=== PATIENT | female | born 1935 | race Two or more races ===

== ENCOUNTER 2019-01-25 09:16 | Outpatient (CLI) | payer MEDICARE, OTHER | END 2019-01-25 23:59 | disposition home or self-care (01) | LOC: RAD 09:16 | PROVIDERS: ATTEND Internal Medicine Interventional Cardiology | DX: I70.0 Atherosclerosis of aorta (principal); I51.7 Cardiomegaly | CPT/HCPCS: 71046 ==

== ENCOUNTER 2019-03-08 09:31 | Outpatient (CLI) | payer MEDICARE, OTHER ==
[2019-03-09] MEDS ORDERED: [UNRECOGNIZED DRUG - CODE] MC (15:58)
[2019-03-09] MEDS ORDERED: AMLO10TA7 PO (15:58)
[2019-03-09] MEDS ORDERED: LOSA100T31 PO (15:58)
[2019-03-09] MEDS ORDERED: METO50TA16 PO (15:58)
[2019-03-09] MEDS ORDERED: IBUP-23 PO (15:58)
[2019-03-09] MEDS ORDERED: HYDR-4209 PO (15:58)
[2019-03-09] MEDS ORDERED: CLON0.2T PO (15:58)
[2019-03-09] MEDS ORDERED: ALPR0.5T8 PO (15:58)
== END 2019-03-08 23:59 | disposition home or self-care (01) ==
LOC: CARD 09:31
PROVIDERS: ATTEND Internal Medicine Interventional Cardiology
DX: I82.409 Acute embolism and thrombosis of unspecified deep veins of unspecified lower extremity (principal); M25.862 Other specified joint disorders, left knee
CPT/HCPCS: 93970-TC

== ENCOUNTER 2019-03-09 13:37 | Inpatient (IN) | payer MEDICARE, OTHER ==
[~2019-03-09] VITALS: Ht 134.6 cm; Wt 69.9 kg
[2019-03-09] MEDS: LOSARTAN POTASSIUM 50 MG TABLET PO SCH (09:00)
--- NOTE | 2019-03-09 15:03 | NUR ---
CALLED NURSING SUP FOR TELE BED
[2019-03-09 15:26] LABS: BASOPHILS # (AUTO) 0.1 /CMM (0.0-0.2); BASOPHILS % (AUTO) 0.8 % (0.0-2.0); EOSINOPHILS % (AUTO) 0.7 % (0.0-6.0); HEMATOCRIT 38 % (33-45); LYMPHOCYTES # (AUTO) 3.3 /CMM (0.8-4.8); LYMPHOCYTES % (AUTO) 29.4 % (20.0-44.0); MEAN CORPUSCULAR HGB CONC 32 g/dl (31.0-36.0); MEAN CORPUSCULAR VOLUME 89 fL (82-100); MONOCYTES # (AUTO) 0.5 /CMM (0.1-1.30); MONOCYTES % (AUTO) 4.5 % (2.0-12.0); NEUTROPHILS # (AUTO) 7.2 /CMM (1.8-8.9); NEUTROPHILS % (AUTO) 64.6 % (43.0-81.0); PLATELET COUNT (AUTO) 262 /CMM (150-450); RED BLOOD CELL COUNT(AUTO) 4.25 MIL/uL (4.0-5.2); WHITE BLOOD COUNT (AUTO) 11.2 K/uL (4.3-11.0)
[2019-03-09] MEDS ORDERED: FUROSEMIDE 40 MG/4 ML VIAL IV ONE (15:30)
[2019-03-09] MEDS ORDERED: ACETAMINOPHEN ES 500 MG TABLET PO ONE (15:30)
--- NOTE | 2019-03-09 15:30 | NUR ---
ASSUMED CARE. BIB DAUGHTER FROM CLINIC, DIZZINESS AND PALPITATION SINCE 1130. PT AAOX4, VSS. RR EVEN & UNLABORED. DENIES CP, SOB, N/V/D, WEAKNESS @ THIS TIME. SPEAKING FLUENTLY W/ HER [place] TONGUE (FAMILY @ BS ASSISTING W/ TRANSLATION), NO FACIAL DROOP, NO ARM DRIFTING, NO VISION PROBLEMS @ THIS TIME. WILL CONT TO MONITOR.
[2019-03-09 15:34] LABS: CALCIUM, SERUM 8.4 mg/dL (8.5-10.1); CARBON DIOXIDE 32 mmol/L (21-32); CHLORIDE 99 mmol/L (98-107); GLUCOSE 111 mg/dL (74-106); POTASSIUM 3.4 mmol/L (3.5-5.1); SODIUM SERUM 139 mmol/L (136-145); UREA NITROGEN, BLOOD 27 mg/dL (7-18)
[2019-03-09] MEDS ORDERED: FUROSEMIDE 40 MG/4 ML VIAL ONE (15:35)
[2019-03-09] MEDS ORDERED: ACETAMINOPHEN ES 500 MG TABLET ONE (15:35)
--- NOTE | 2019-03-09 15:41 | NUR ---
PT TO CT VIA [facility].
[2019-03-09 15:51] LABS: ALANINE AMINOTRANSFERASE 43 U/L (12-78); ALBUMIN 3.5 g/dL (3.4-5.0); ALKALINE PHOSPHATASE 79 U/L (46-116); ASPARTATE AMINOTRANSFERASE 37 U/L (15-37); B-TYPE NATRIURETIC PEPTIDE 1846 PG/ML (0-125); BILIRUBIN,DIRECT 0.1 mg/dL (0.0-0.2); BILIRUBIN,TOTAL 0.5 mg/dL (0.2-1.0); TOTAL PROTEIN, SERUM 7.1 g/dL (6.4-8.2)
[2019-03-09] MEDS ORDERED: [UNRECOGNIZED DRUG - CODE] MC (15:58)
[2019-03-09] MEDS ORDERED: HYDR-4209 PO (15:58)
[2019-03-09] MEDS ORDERED: AMLO10TA7 PO (15:58)
[2019-03-09] MEDS ORDERED: ALPR0.5T8 PO (15:58)
[2019-03-09] MEDS ORDERED: IBUP-23 PO (15:58)
[2019-03-09] MEDS ORDERED: LOSA100T31 PO (15:58)
[2019-03-09] MEDS ORDERED: METO50TA16 PO (15:58)
[2019-03-09] MEDS ORDERED: CLON0.2T PO (15:58)
[2019-03-09] MEDS ORDERED: ASPIRIN EC 325 MG TABLET.DR PO ONE ×2 (16:30→16:31)
--- NOTE | 2019-03-09 17:16 | NUR ---
REPORT GIVEN TO VAMSI SEN FOR NICO.
[2019-03-09 18:53] VITALS: BP 148/75
[2019-03-09] MEDS ORDERED: ONDANSETRON HCL/PF 4 MG/2 ML VIAL IVP PRN (19:00)
[2019-03-09] MEDS ORDERED: ACETAMINOPHEN 325 MG TABLET PO PRN (19:00)
[2019-03-09] MEDS ORDERED: MAGNESIUM HYDROXIDE 30 ML UDC PO PRN (19:00)
[2019-03-09] MEDS ORDERED: Z GUARD REMEDY 2 OZ OINT TP PRN (19:00)
[2019-03-09] MEDS ORDERED: MAG HYDROX/AL HYDROX/SIMETH 30 ML UDC PO PRN (19:00)
[2019-03-09] MEDS ORDERED: HYDROCODONE/APAP 5/325MG 1 EACH TABLET PO PRN (19:00)
--- NOTE | 2019-03-09 19:00 | NUR ---
RN MIKE OPENING NOTES PATIENT IN BED, AWAKE, A/OX4, AZERI SPEAKING. FAMILY AT BEDSIDE AND ABLE TO HELP TRANSLATE FOR PATIENT. ON TELE MONITOR SR WITH HR 80S. ON ROOM AIR, RR EVEN AND UNLABORED. PATIENT DENIES ANY SOB OR PAIN AT PRESENT MOMENT. PATIENT IS ABLE TO AMBULATE WITH CANE AND MINIMAL ASSISTANCE. IV SITE RIGHT AC 20G, FLUSHING AND PATENT, SITE C/D/I, S/L. SAFETY MEASURES IN PLACE; BED IS LOCKED AND IN LOWEST POSITION, SIDE RAILS UP X2, CALL LIGHT WITHIN REACH. WILL CONT TO MONITOR PT CLOSELY.
--- NOTE | 2019-03-09 19:23 | NUR ---
RN MIKE CLOSING NOTES PT IS A&OX4 MONGOLIAN SPEAKING ONLY FAMILY IS BEDSIDE. PT IS ON TELE MONITOR HR 96 SR. PT DENIES ANY SOB OR CP AT PRESENT MOMENT PT IS ABLE TO AMBULATE WITH CANE. PT HAS A 20 GAUGE RAC SL. BED IS LOCKED AND IN LOWEST POSITION WITH CALL LIGHT IN REACH. WILL ENDORSE CONTINUITY OF CARE TO KENNEL AIDE RN.
[2019-03-09] MEDS: ENOXAPARIN SODIUM 80 MG/0.8 ML DISP.SYRIN SQ SCH (19:44)
[2019-03-09] MEDS: NITROGLYCERIN PACKET 1 GM PACKET TOP SCH ×2 (19:46→21:33)
[2019-03-09 20:00] VITALS: BP 152/63
[2019-03-09] MEDS: ALPRAZOLAM 0.5 MG TABLET PO SCH (21:00)
[2019-03-09] MEDS: CLONIDINE HCL 0.1 MG TABLET PO SCH (21:33)
[2019-03-10] VITALS: BP 113/62
[2019-03-10 04:00] VITALS: BP 144/64
[2019-03-10] MEDS: NITROGLYCERIN PACKET 1 GM PACKET TOP SCH ×3 (04:54→21:00)
[2019-03-10] MEDS: ALPRAZOLAM 0.5 MG TABLET PO SCH ×4 (04:54→21:30)
[2019-03-10 06:50] LABS: BASOPHILS # (AUTO) 0.1 /CMM (0.0-0.2); BASOPHILS % (AUTO) 0.7 % (0.0-2.0); EOSINOPHILS % (AUTO) 1.7 % (0.0-6.0); HEMATOCRIT 34 % (33-45); HEMOGLOBIN 10.9 g/dL (11.5-14.8); LYMPHOCYTES # (AUTO) 3.3 /CMM (0.8-4.8); LYMPHOCYTES % (AUTO) 39.2 % (20.0-44.0); MEAN CORPUSCULAR HGB CONC 32 g/dl (31.0-36.0); MEAN CORPUSCULAR VOLUME 88 fL (82-100); MONOCYTES # (AUTO) 0.4 /CMM (0.1-1.30); MONOCYTES % (AUTO) 5.3 % (2.0-12.0); NEUTROPHILS # (AUTO) 4.4 /CMM (1.8-8.9); NEUTROPHILS % (AUTO) 53.1 % (43.0-81.0); PLATELET COUNT (AUTO) 241 /CMM (150-450); RED BLOOD CELL COUNT(AUTO) 3.84 MIL/uL (4.0-5.2); WHITE BLOOD COUNT (AUTO) 8.3 K/uL (4.3-11.0)
--- NOTE | 2019-03-10 06:50 | NUR ---
MIKE RN CLOSING NOTES PATIENT IN BED, SLEEPING, BUT EASY TO AROUSE. A/OX4, BELGIAN SPEAKING. FAMILY AT BEDSIDE AND ABLE TO HELP TRANSLATE FOR PATIENT. NO ACUTE CHANGES THROUGHOUT SHIFT. ON TELE MONITOR SR WITH HR 70S WITH OCCASIONAL PACS. ON OXYGEN 1LPM VIA NC, TOLERATING WELL, RR EVEN AND UNLABORED. PATIENT DENIES ANY SOB OR PAIN AT THIS TIME. PATIENT IS ABLE TO AMBULATE WITH CANE AND MINIMAL ASSISTANCE. IV SITE RIGHT AC 20G, FLUSHING AND PATENT, SITE C/D/I, S/L. SAFETY MEASURES IN PLACE; BED IS LOCKED AND IN LOWEST POSITION, SIDE RAILS UP X2, CALL LIGHT WITHIN REACH. WILL CONT TO MONITOR PT CLOSELY. WILL ENDORSE TO AM RN FOR NICO.
[2019-03-10 07:08] LABS: CHOLESTEROL 191 mg/dL (<200); HDL CHOLESTEROL 52 mg/dL (40-60); LDL 125 mg/dL (0-99); TRIGLYCERIDES 104 mg/dL (30-150)
[2019-03-10 07:10] LABS: CALCIUM, SERUM 7.9 mg/dL (8.5-10.1); CARBON DIOXIDE 31 mmol/L (21-32); CHLORIDE 104 mmol/L (98-107); CREATININE 0.8 mg/dL (0.6-1.3); GLUCOSE 94 mg/dL (74-106); MAGNESIUM 2.3 mg/dL (1.8-2.4); POTASSIUM 2.9 mmol/L (3.5-5.1); SODIUM SERUM 142 mmol/L (136-145); UREA NITROGEN, BLOOD 25 mg/dL (7-18)
--- NOTE | 2019-03-10 07:35 | NUR ---
RN NOTE: RECEIVED PATIENT IN BED, AWAKE, ALERT AND VERBALLY RESPONSIVE. RESPIRATION EVEN AND UNLABORED SATURATING 96% WITH O2 @1L/MIN VIA NC. DENIED ANY PAIN/ CHEST PAIN. (R) AC 20G NOTED INTACT AND PATENT. AFEBRILE. SKIN WARM TO TOUCH. PATIENT ATE 100% OF HER BREAKFAST. ON ELECTROPHYSIOLOGY SCIENTIST SR HR= 73. BED ALARMED AND LOCKED AT ALL TIMES. CALL LIGHT WITHIN REACH. 2 FAMILY MEMBERS WERE PRESENT AT THE BEDSIDE.
[2019-03-10 08:00] VITALS: BP 125/68
[2019-03-10] MEDS ORDERED: AMLODIPINE BESYLATE 10 MG TABLET PO SCH (09:00)
[2019-03-10] MEDS: ASPIRIN 81 MG TAB.CHEW PO SCH (09:21)
[2019-03-10] MEDS: LOSARTAN POTASSIUM 50 MG TABLET PO SCH (09:22)
[2019-03-10] MEDS: METOPROLOL TARTRATE 50 MG TABLET PO SCH ×2 (09:22→16:46)
[2019-03-10] MEDS: ENOXAPARIN SODIUM 80 MG/0.8 ML DISP.SYRIN SQ SCH (09:23)
[2019-03-10] MEDS ORDERED: POTASSIUM CL. PREMIX PERIPHER. 50 ML IV SCH (09:30)
[2019-03-10] MEDS ORDERED: POTASSIUM CHLORIDE 20 MEQ TAB.PRT.SR PO ONE (09:30)
[2019-03-10] MEDS: DILTIAZEM HCL CD 240 MG PO SCH (10:24)
[2019-03-10] MEDS: POTASSIUM CHLORIDE 20 MEQ TAB.PRT.SR PO SCH ×4 (10:24→13:39)
--- NOTE | 2019-03-10 10:59 | NUR ---
RN NOTE: BEDSIDE REPORT WAS GIVEN TO MIKE POP RN FOR CONTINUITY OF CARE. PATIENT WAS PENDING FOR CTCA @1200 TODAY. PATIENT HAS A BIG FAMILY AND THEY WERE ALL PRESENT AT THE BEDSIDE. DENIED ANY CHEST PAIN OR ANY PAIN.
--- NOTE | 2019-03-10 11:00 | NUR ---
RN NOTE REPORT GIVEN AT BEDSIDE FROM MIKE PARISH RN. PATIENT IN BED AWAKE AND ALERTX4. SYRIAN SPEAKING. FAMILY AT BEDSIDE. ON 1L NC, NO COMPLAINS OF ANY PAIN NOR SOB AT THIS TIME. ON TELE MONITOR, SR AT 70s. HAS BLE +4 EDEMA. AMBULATORY WITH ASSIST AND USING CANE. ON CARDIAC DIET. HAS RIGHT AC #20 SALINE LOCKED. CTCA TO BE DONE AT 1200, CONSENT FORM SIGNED. K BEING REPLACED PER DR JOHNSON. WILL HAVE A REPEAT BMP AT 1600. BED LOCKED AND IN LOWEST POSITION. CALL LIGHT WITHIN REACH. WILL CONTINUE TO MONITOR
--- NOTE | 2019-03-10 11:45 | NUR ---
RN NOTE INSERTED ANOTHER IV SITE, LEFT AC #18 FOR CTCA TODAT AT 1200. INTACT, PATENT AND SALINE FLUSHED
[2019-03-10 12:00] VITALS: BP 100/49
[2019-03-10] MEDS ORDERED: IOHEXOL-350 100 ML VIAL IV ONE (12:11)
[2019-03-10] MEDS ORDERED: IV NS 0.9% 250 ML IV ONE (12:11)
[2019-03-10] MEDS ORDERED: CT SWABBABLE VALVE TRANS SET 1 EA INFUS.SET MC ONE (12:11)
--- NOTE | 2019-03-10 12:49 | NUR ---
RN NOTE PATIENT LEFT FOR CTCA. VSS. NO COMPLAINS OF ANY SOB NOR PAIN.
--- NOTE | 2019-03-10 13:40 | NUR ---
RN NOTE PATIENT CAME BACK FROM CTCA. VS 90/46, 98.0F, 59, 21, 96%. PATIENT REFUSED XANAX. AND TOOK HER LAST K PO REPLACEMENT. BMP RECHECK AT 1600 ORDERED
--- NOTE | 2019-03-10 15:08 | NUR ---
RN NOTE PATIENT COMPLAINED TO THE PHARMACIST THAT SHE FEELS LIKE SHE IS HAVING NAUSEA. PULLED OUT ZOFRAN FROM PYXIS. WHEN I ENTERED THE ROOM, PATIENT DOES NOT WANT ZOFRAN AND SHE STATED THAT SHE FEELS LIKE HER STOMACH IS GOING UPSIDE DOWN. WILL DISCARD ZOFRAN AND WILL GIVE MAALOX INSTEAD
[2019-03-10 16:00] VITALS: BP 101/49
[2019-03-10 16:18] LABS: CALCIUM, SERUM 8.1 mg/dL (8.5-10.1); CARBON DIOXIDE 29 mmol/L (21-32); CHLORIDE 101 mmol/L (98-107); CREATININE 1.1 mg/dL (0.6-1.3); GLUCOSE 134 mg/dL (74-106); POTASSIUM 4.6 mmol/L (3.5-5.1); SODIUM SERUM 136 mmol/L (136-145); UREA NITROGEN, BLOOD 28 mg/dL (7-18)
--- NOTE | 2019-03-10 16:46 | NUR ---
RN NOTE LOPRESSOR NOT GIVEN. BP ON THE LOW SIDE, 101/49. HR 63. PATIENT JUST HAD BM, DIARRHEA PER PATIENT DESCRIPTION. SENIOR INFORMATION SECURITY ENGINEER PUT A HAT ON THE TOILET SEAT JUST IN CASE SHE GOES AGAIN.
--- NOTE | 2019-03-10 17:30 | NUR ---
RN NOTE FAMILY AT BEDSIDE REPORTED PATIENT HAD 4X BOWEL MOVEMENT, DIARRHEA PER PATIENT'S DESCRIPTION. AFTER PUTTING THE HAT ON THE TOILET. 5TH BM, DIARRHEA, BROWN BUT NOT WATERY C-DIFF LIKE BM. PATIENT COMPLAINING OF ABDOMINAL PAIN 5/10. SHARP NON RADIATING PAIN. ADMINISTERED NORCO FOR PAIN. MADE DR JOHNSON AWARE, NO NEW ORDERS. RECHECK BMP TOMORROW AND GIVE PAIN MED FOR ABD PAIN FOR NOW
--- NOTE | 2019-03-10 17:34 | NUR ---
RN NOTE PHARMACY CALLED, THEY DECREASED LOVENOX TO 70 MG DAILY BECAUSE OF THE CREATININE LEVEL. NO LOVENOX FOR TONIGHT.
--- NOTE | 2019-03-10 18:43 | NUR ---
RN CLOSING NOTE PATIENT IN BED, AWAKE AND ALERT. FAMILY AT BEDSIDE. FEELING NAUSEOUS BUT REFUSING ZOFRAN FOR NOW. HAD X5 MD WILL AWARE. RIGHT AC #20 AND LEFT AC #18, SALINE LOCKED. NORCO GIVEN AT 1728 FOR ABD PAIN. K REPLACED. CTCA DONE, RESULTS SHOW NO OCCLUSION. BED IN LOWEST POSITION. CALL LIGHT WITHIN REACH. WILL ENDORSE TO NOC SHIFT FOR NICO
--- NOTE | 2019-03-10 19:14 | NUR ---
RN MIKE OPENING NOTES PATIENT IN BED, AWAKE, A/OX4, SWEDISH SPEAKING. FAMILY AT BEDSIDE AND ABLE TO HELP TRANSLATE FOR PATIENT. ON TELE MONITOR SR WITH HR 60S. ON ROOM AIR, RR EVEN AND UNLABORED. PATIENT DENIES ANY SOB OR PAIN AT THE MOMENT. PATIENT IS ABLE TO AMBULATE WITH CANE AND MINIMAL ASSISTANCE. IV SITE RIGHT AC 20G AND LEFT AC 18G, BOTH FLUSHING AND PATENT, SITES C/D/I, S/L. SAFETY MEASURES IN PLACE; BED IS LOCKED AND IN LOWEST POSITION, SIDE RAILS UP X2, CALL LIGHT WITHIN REACH. WILL CONT TO MONITOR PT CLOSELY.
[2019-03-10 20:00] VITALS: BP 110/45
--- NOTE | 2019-03-10 20:45 | NUR ---
MIKE RN NOTES PATIENT BP 110/45, HR 57. WILL HOLD NITROGLYCERIN TOPICAL FOR 2100 ORDER. WILL CONT TO MONITOR.
[2019-03-10] MEDS: CLONIDINE HCL 0.1 MG TABLET PO SCH (21:23)
[2019-03-11 01:00] VITALS: BP 116/55
[2019-03-11 04:00] VITALS: BP 129/65
[2019-03-11] MEDS: ALPRAZOLAM 0.5 MG TABLET PO SCH ×2 (05:02→12:24)
[2019-03-11] MEDS: NITROGLYCERIN PACKET 1 GM PACKET TOP SCH ×2 (05:03→12:25)
[2019-03-11 06:27] LABS: CALCIUM, SERUM 8.1 mg/dL (8.5-10.1); CARBON DIOXIDE 27 mmol/L (21-32); CHLORIDE 105 mmol/L (98-107); CREATININE 0.8 mg/dL (0.6-1.3); GLUCOSE 107 mg/dL (74-106); POTASSIUM 4.1 mmol/L (3.5-5.1); SODIUM SERUM 139 mmol/L (136-145); UREA NITROGEN, BLOOD 25 mg/dL (7-18)
--- NOTE | 2019-03-11 07:01 | NUR ---
RN MIKE CLOSING NOTES PATIENT IN BED, AWAKE, A/OX4, YI SPEAKING. FAMILY AT BEDSIDE AND ABLE TO HELP TRANSLATE FOR PATIENT. ON TELE MONITOR SR WITH HR 60S, LOWEST HR 57. NO EPISODES OF DIARRHEA THROUGHOUT SHIFT. PATIENT IS ABLE TO AMBULATE WITH CANE AND MINIMAL ASSISTANCE. IV SITE RIGHT AC 20G AND LEFT AC 18G, BOTH FLUSHING AND PATENT, SITES C/D/I, S/L. ALL MD ORDERS ATTENDED, ALL NEEDS ANTICIPATED AND MET. SAFETY MEASURES IN PLACE; BED IS LOCKED AND IN LOWEST POSITION, SIDE RAILS UP X2, CALL LIGHT WITHIN REACH. FAMILY REQUESTS TO TALK TO LIVING SUPERVISOR, ENDORSED TO AM RN FOR NICO.
--- NOTE | 2019-03-11 07:05 | NUR ---
RN NOTE RECEIVED PATIENT ON BED, AWAKE, A/OX4, BULGARIAN SPEAKING. ON 1L O2 N/C ,SUPPORTIVE FAMILY AT THE BEDSIDE AND ABLE TO HELP TRANSLATE FOR PATIENT. ON TELE SR , HR IN 60S. PATIENT IS ABLE TO AMBULATE WITH CANE AND MINIMAL ASSISTANCE. IV SITE RIGHT AC 20G AND LEFT AC 18G, BOTH FLUSHING AND PATENT, SITES C/D/I, S/L. SR UP x3, SAFETY MEASURES IN PLACE; BED IS LOCKED AND IN LOWEST POSITION, CALL LIGHT WITHIN EASY REACH. CONTINUE TO CLOSELY.
[2019-03-11 08:00] VITALS: BP 147/77
[2019-03-11] MEDS: LOSARTAN POTASSIUM 50 MG TABLET PO SCH (08:08)
[2019-03-11] MEDS: DILTIAZEM HCL CD 240 MG PO SCH (08:08)
[2019-03-11] MEDS: ASPIRIN 81 MG TAB.CHEW PO SCH (08:09)
[2019-03-11] MEDS: METOPROLOL TARTRATE 50 MG TABLET PO SCH (08:09)
[2019-03-11] MEDS ORDERED: ENOXAPARIN SODIUM 80 MG/0.8 ML DISP.SYRIN SQ SCH (09:00)
[2019-03-11 12:00] VITALS: BP 117/59
[2019-03-11 12:25] VITALS: BP 117/59
--- NOTE | 2019-03-11 13:55 | NUR ---
RN NOTES PT OK TO GO HOME PER DR CLEMENS ORDER , DISCHARGE INSTRUCTION GIVEN TO PT AND HER DAUGHTER, THEY VERBALIZE UNDERSTANDING, IV SITES D/DESIREE, VSS STABLE, PT LEFT THE FLOOR BY W/C ACCOMPANIED BY FAMILY TO MAIN ENTRANCE IN STABLE CONDITION .
== END 2019-03-11 13:49 | disposition home or self-care (01) | DRG 280 ==
LOC: ER 13:39 → TELE 17:19 → TELE-TD 17:46
PROVIDERS: ADMIT Internal Medicine; ATTEND Internal Medicine
DX: I11.0 Hypertensive heart disease with heart failure (principal); I21.4 Non-ST elevation (NSTEMI) myocardial infarction; N17.0 Acute kidney failure with tubular necrosis; I50.33 Acute on chronic diastolic (congestive) heart failure; I42.1 Obstructive hypertrophic cardiomyopathy; I16.0 Hypertensive urgency; E87.6 Hypokalemia; R51 Headache
CPT/HCPCS: 36415; 70450-TC; 71045-TC; 75574; 80048-TC; 80061-TC; 80076-TC; 83735-TC; 83880; 84100-TC; 84484-TC; 85025-TC; 87081-TC; 93307-TC; G0378; J1650; J1940; J2405; J7050; Q9967

== ENCOUNTER 2019-03-13 11:43 | Inpatient (IN) | payer MEDICARE, OTHER ==
[~2019-03-13] VITALS: Ht 149.9 cm; Wt 70.8 kg
[~2019-03-13 11:43] MED LIST: ALPR0.5T8 PO; AMLO10TA7 PO; CLON0.2T PO; HYDR-4209 PO; IBUP-23 PO; LOSA100T31 PO; METO50TA16 PO; [UNRECOGNIZED DRUG - CODE] MC
--- NOTE | 2019-03-13 11:54 | NUR ---
"SENT BY DIE MECHANIC DUE TO WEAKNESS x 2 DAYS, DENIES ANY PAIN" PT AAOX4, -SOB, NAD NOTED, VSS, PENDING MD GARCIA
[2019-03-13 12:15] LABS: BASOPHILS % (AUTO) 0.6 % (0.0-2.0); EOSINOPHILS % (AUTO) 1.6 % (0.0-6.0); HEMATOCRIT 34 % (33-45); HEMOGLOBIN 11.1 g/dL (11.5-14.8); LYMPHOCYTES # (AUTO) 1.7 /CMM (0.8-4.8); LYMPHOCYTES % (AUTO) 22.7 % (20.0-44.0); MEAN CORPUSCULAR HGB CONC 32 g/dl (31.0-36.0); MEAN CORPUSCULAR VOLUME 90 fL (82-100); MONOCYTES # (AUTO) 0.5 /CMM (0.1-1.30); MONOCYTES % (AUTO) 6.9 % (2.0-12.0); NEUTROPHILS # (AUTO) 5.1 /CMM (1.8-8.9); NEUTROPHILS % (AUTO) 68.2 % (43.0-81.0); PLATELET COUNT (AUTO) 226 /CMM (150-450); RED BLOOD CELL COUNT(AUTO) 3.83 MIL/uL (4.0-5.2); WHITE BLOOD COUNT (AUTO) 7.5 K/uL (4.3-11.0)
[2019-03-13 12:21] LABS: CALCIUM, SERUM 8.9 mg/dL (8.5-10.1); CARBON DIOXIDE 32 mmol/L (21-32); CHLORIDE 106 mmol/L (98-107); CREATININE 1.1 mg/dL (0.6-1.3); GLUCOSE 101 mg/dL (74-106); POTASSIUM 3.9 mmol/L (3.5-5.1); SODIUM SERUM 140 mmol/L (136-145); UREA NITROGEN, BLOOD 29 mg/dL (7-18)
[2019-03-13 12:34] LABS: B-TYPE NATRIURETIC PEPTIDE 1086 PG/ML (0-125)
[2019-03-13] MEDS ORDERED: IV 1/2NS 1000 ML 1,000 ML IV PRN (13:14)
[2019-03-13] MEDS ORDERED: IV NS 0.9% 500 ML IV ONE (13:30)
[2019-03-13] MEDS ORDERED: MAGNESIUM HYDROXIDE 30 ML UDC PO PRN (13:30)
[2019-03-13] MEDS ORDERED: ONDANSETRON HCL/PF 4 MG/2 ML VIAL IVP PRN (13:30)
[2019-03-13] MEDS ORDERED: ACETAMINOPHEN 325 MG TABLET PO PRN (13:30)
[2019-03-13] MEDS ORDERED: IV NS 0.9% 1,000 ML IV ONE (13:30)
[2019-03-13] MEDS ORDERED: MAG HYDROX/AL HYDROX/SIMETH 30 ML UDC PO PRN (13:30)
--- NOTE | 2019-03-13 13:30 | NUR ---
UNABLE TO ADMINISTER THOURHG EMAR- ADMINISTERED 1330 LAC20 IVF END TIME 1430
[2019-03-13] MEDS ORDERED: BUME1TAB8 PO (14:10)
[2019-03-13] MEDS ORDERED: POTA10TA10 PO (14:10)
--- NOTE | 2019-03-13 14:19 | NUR ---
REPORT GIVEN TO ANNAMARIE AGUSTIN FOR NICO PT WILL BE TRANSPORTED TO 3RD FLOOR
--- NOTE | 2019-03-13 14:37 | NUR ---
RN NOTES ADMITTED PATIENT TO UNIT, REPORT RECEIVED FROM SRIRAM AGUSTIN. PATIENT A/O X 4, VERBALLY RESPONSIVE AND RESPONDS TO VERBAL AND TACTILE STIMULI. NO ACUTE DISTRESS. DENIES ANY PAIN OR DISCOMFORT. NO CHANGES IN LOC NOTED. DAUGHTER SUMMER AT BEDSIDE. PATIENT AND DAUGHTER ORIENTED TO UNIT, STAFF, PLAN OF CARE, AND VERBALIZED UNDERSTANDING. PATIENT ADMITTED UNDER MEDICAL SUPERVISION OF DR JENSEN, AWARE OF PATIENT ARRIVAL AT UNIT. SAFETY PRECAUTIONS IN PLACE. WILL CONTINUE TO MONITOR. BED LOCKED AND IN LOW POSITION. BILATERAL UPPER SIDE RAILS UP AND LOCKED. CALL LIGHT WITHIN EASY REACH
--- NOTE | 2019-03-13 14:37 | NUR ---
PT TRANSPORTED TO 3RD FLOOR
[2019-03-13 16:00] VITALS: BP 120/80
--- NOTE | 2019-03-13 18:23 | NUR ---
MS RN NOTES PATIENT RESTING INSIDE ROOM. AWAKE, ALERT AND ORIENTED X 3, VERBALLY RESPONSIVE AND RESPONDS TO VERBAL AND TACTILE STIMULI. BREATHING EVEN AND UNLABORED. NO ACUTE DISTRESS. DENIES ANY PAIN OR DISCOMFORT. NO CHANGES IN LOC NOTED AT THIS TIME. PATIENT KEPT CLEAN, DRY AND COMFORTABLE. WILL ENDORSE TO INCOMING SHIFT FOR NICO. BED LOCKED AND IN LOW POSITION. BILATERAL UPPER SDIE RAILS UP AND LOCKED. CALL LIGHT WITHIN EASY REACH
--- NOTE | 2019-03-13 19:40 | NUR ---
MS RN NOTE: PATIENT RESTING IN BED, NO ACUTE DISTRESS NOTED, FAMILY AT BEDSIDE. BREATHING EVEN AND UNLABORED, NO SOB NOTED. IV TO LAC IN PLACE, INFUSING 1/2NS AT 75ML/HR. BED LOCKED AND IN LOWEST POSITION, CALL LIGHT IN REACH. WILL CONTINUE TO MONITOR.
[2019-03-13 20:00] VITALS: BP 132/65
--- NOTE | 2019-03-14 02:30 | NUR ---
MS RN NOTE: PATIENT SLEEPING IN BED, NO ACUTE DISTRESS NOTED. BREATHING EVEN AND UNLABORED, NO SOB NOTED. WILL CONTINUE TO MONITOR.
--- NOTE | 2019-03-14 06:15 | NUR ---
MS RN NOTE: PATIENT RESTING IN BED, NO ACUTE DISTRESS NOTED, FAMILY AT BEDSIDE. BREATHING EVEN AND UNLABORED, NO SOB NOTED. IV TO LAC IN PLACE. BED LOCKED AND IN LOWEST POSITION, CALL LIGHT IN REACH. WILL ENDORSE TO DAY NURSE TO CONTINUE WITH PLAN OF CARE.
[2019-03-14 06:33] LABS: BASOPHILS % (AUTO) 0.4 % (0.0-2.0); HEMATOCRIT 34 % (33-45); HEMOGLOBIN 10.8 g/dL (11.5-14.8); LYMPHOCYTES # (AUTO) 1.8 /CMM (0.8-4.8); LYMPHOCYTES % (AUTO) 24.6 % (20.0-44.0); MEAN CORPUSCULAR HGB CONC 32 g/dl (31.0-36.0); MEAN CORPUSCULAR VOLUME 91 fL (82-100); MONOCYTES # (AUTO) 0.5 /CMM (0.1-1.30); MONOCYTES % (AUTO) 7.1 % (2.0-12.0); NEUTROPHILS # (AUTO) 4.9 /CMM (1.8-8.9); NEUTROPHILS % (AUTO) 65.9 % (43.0-81.0); PLATELET COUNT (AUTO) 202 /CMM (150-450); RED BLOOD CELL COUNT(AUTO) 3.75 MIL/uL (4.0-5.2); WHITE BLOOD COUNT (AUTO) 7.4 K/uL (4.3-11.0)
[2019-03-14 06:47] LABS: CHOLESTEROL 172 mg/dL (<200); HDL CHOLESTEROL 42 mg/dL (40-60); LDL 113 mg/dL (0-99); TRIGLYCERIDES 116 mg/dL (30-150)
--- NOTE | 2019-03-14 07:57 | NUR ---
MS RN OPENING NOTES RECEIVED PATIENT IN BED RESTING IN MODERATE HIGH BACK REST. FAMILY ON BEDSIDE. A/O X 4. ON RA, TOLERATING WELL. IV ACCESS ON LEFT AC# 20, CURRENTLY ON SL. SAFETY MEASURES IN PLACE, BED IN LOW LOCKED POSITION WITH SIDE RAILS UP X2. CALL LIGHT WITHIN EASY REACH. WILL CONTINUE TO MONITOR.
[2019-03-14 09:07] LABS: ALANINE AMINOTRANSFERASE 27 U/L (12-78); ALBUMIN 2.6 g/dL (3.4-5.0); ALKALINE PHOSPHATASE 70 U/L (46-116); ASPARTATE AMINOTRANSFERASE 28 U/L (15-37); BILIRUBIN,TOTAL 0.3 mg/dL (0.2-1.0); CALCIUM, SERUM 8.3 mg/dL (8.5-10.1); CARBON DIOXIDE 24 mmol/L (21-32); CHLORIDE 108 mmol/L (98-107); CREATININE 0.9 mg/dL (0.6-1.3); GLUCOSE 81 mg/dL (74-106); MAGNESIUM 2.1 mg/dL (1.8-2.4); PHOSPHORUS 3.4 mg/dL (2.5-4.9); POTASSIUM 4.2 mmol/L (3.5-5.1); SODIUM SERUM 143 mmol/L (136-145); TOTAL PROTEIN, SERUM 6.2 g/dL (6.4-8.2); UREA NITROGEN, BLOOD 19 mg/dL (7-18)
[2019-03-14 09:39] VITALS: BP 167/93
--- NOTE | 2019-03-14 12:30 | NUR ---
RN DISCHARGED NOTES PATIENT DISCHARGED IN STABLE CONDITION. A/O X 4. ABLE TO MAKE NEEDS KNOWN. V/S TAKEN, STABLE AND RECORDED. PATIENT'S IV ACCESS REMOVED AND APPLIED PRESSURE DRESSING. SKIN IS INTACT. NAME ARM BAND REMOVED. ALL BELONGINGS CHECKED AND SIGNED. HEALTH TEACHINGS/DISCHARGED INSTRUCTIONS GIVEN AND VERBALIZED UNDERSTANDING. PATIENT LEFT UNIT AMBULATORY WITH WALKER, WITH NO ACUTE SIGNS OF DISTRESS. PATIENT LEFT UNIT WITH FAMILY. CHARGE NURSE AWARE OF DISCHARGED.
== END 2019-03-14 12:30 | disposition home or self-care (01) | DRG 641 ==
LOC: ER 11:48 → TELE 14:02 → MED 14:12
PROVIDERS: ADMIT Internal Medicine; ATTEND Internal Medicine
DX: E86.0 Dehydration (principal); I50.32 Chronic diastolic (congestive) heart failure; I11.0 Hypertensive heart disease with heart failure; Z86.718 Personal history of other venous thrombosis and embolism; Z79.899 Other long term (current) drug therapy; I25.10 Atherosclerotic heart disease of native coronary artery without angina pectoris; M19.90 Unspecified osteoarthritis, unspecified site; E78.5 Hyperlipidemia, unspecified
CPT/HCPCS: 36415; 71045-TC; 80048-TC; 80053-TC; 80061-TC; 83735-TC; 83880; 84100-TC; 84484-TC; 85025-TC; 85730-TC; 87081-TC; 97116-TC; 97530-TC; G0378; J3490; J7030

== ENCOUNTER 2019-03-27 09:05 | Outpatient (CLI) | payer MEDICARE, OTHER ==
[~2019-03-27 09:05] MED LIST changes: +BUME1TAB8 PO; -IBUP-23 PO; +POTA10TA10 PO
== END 2019-03-27 23:59 | disposition home or self-care (01) ==
LOC: CT 09:05
PROVIDERS: ATTEND Internal Medicine Interventional Cardiology
DX: J98.09 Other diseases of bronchus, not elsewhere classified (principal); N28.1 Cyst of kidney, acquired; I25.10 Atherosclerotic heart disease of native coronary artery without angina pectoris; I70.0 Atherosclerosis of aorta; M47.814 Spondylosis without myelopathy or radiculopathy, thoracic region; M40.294 Other kyphosis, thoracic region
CPT/HCPCS: 71250-TC